=== PATIENT | female | born 2000 | race African-American/Black ===

== ENCOUNTER 2022-09-27 00:55 | Emergency (ER) | payer OTHER, MEDICAID ==
[~2022-09-27] VITALS: Ht 170.2 cm; Wt 81.6 kg
[2022-09-27 01:10] VITALS: BP 117/87
--- NOTE | 2022-09-27 01:13 | NUR ---
TO LOBBY A/W BED AMBULATORY
[2022-09-27 02:02] LABS: EOSINOPHILS # (AUTO) 0.3 K/uL (0-0.4); EOSINOPHILS % (AUTO) 2.9 % (0.0-4.0); HEMATOCRIT 37.7 % (36-48); HEMOGLOBIN 12.5 g/dL (12.0-16.0); LYMPHOCYTES # (AUTO) 3.4 K/uL (2.5-16.5); LYMPHOCYTES % (AUTO) 38.6 % (20.5-51.1); MEAN CORPUSCULAR HEMOGLOBIN 30 pg (27-31); MEAN CORPUSCULAR HGB CONC 33 g/dL (33-37); MEAN CORPUSCULAR VOLUME 90.3 fL (80-94); MONOCYTES # (AUTO) 2.8 K/uL (0.8-1.0); MONOCYTES % (AUTO) 31.4 % (1.7-9.3); NEUTROPHILS # (AUTO) 2.4 K/uL (1.8-7.7); NEUTROPHILS % (AUTO) 27.1 % (42.2-75.2); PLATELET COUNT (AUTO) 363 K/uL (140-450); RED BLOOD CELL COUNT(AUTO) 4.17 MIL/uL (4.20-5.40); RED CELL DISTRIBUTION WIDTH 12.7 % (11.6-13.7); WHITE BLOOD COUNT (AUTO) 8.8 K/uL (4.5-11.0)
[2022-09-27 02:20] LABS: PROTHROMBIN TIME 10.1 secs (10.8-13.4)
[2022-09-27] MEDS ORDERED: MEDR10TA PO (02:52)
[2022-09-27 03:15] VITALS: BP 134/68
--- NOTE | 2022-09-27 03:26 | NUR ---
Patient discharged with v/s stable. Written and verbal after care instructions given and explained BY DR GARCIA. Patient verbalized understanding. Ambulatory with steady gait. All questions addressed prior to discharge. Advised to follow up with PMD.
== END 2022-09-27 03:26 | disposition home or self-care (01) ==
LOC: MED 00:55
DX: N93.8 Other specified abnormal uterine and vaginal bleeding (principal)
CPT/HCPCS: 36415; 81002; 81025; 85025; 85610; 85730; 99283

== ENCOUNTER 2022-11-04 00:02 | Emergency (ER) | payer OTHER, MEDICAID ==
[~2022-11-04] VITALS: Ht 170.2 cm; Wt 85.7 kg
[~2022-11-04 00:02] MED LIST: MEDR10TA PO
[2022-11-04 00:06] VITALS: BP 133/81
--- NOTE | 2022-11-04 00:16 | NUR ---
TO BED 9 FOLLOWING TRIAGE
--- NOTE | 2022-11-04 00:45 | NUR ---
FIRST CONTACT WITH PT. SEE INITIAL ASSESSMENT.
--- NOTE | 2022-11-04 01:00 | NUR ---
DR. GOVEA AT BEDSIDE.
[2022-11-04 01:30] LABS: ALBUMIN 3.6 g/dL (3.4-5.0); ANION GAP 9.7 (8-16); ASPARTATE AMINOTRANSFERASE 10 U/L (15-37); CHLORIDE 104 mmol/L (98-107); GFR ARICAN-AMERICAN 92 mL/min (>90); GLUCOSE 107 mg/dL (74-106); POTASSIUM 3.7 mmol/L (3.5-5.1); SODIUM SERUM 139 mmol/L (136-145); TOTAL BILIRUBIN 0.2 mg/dL (0.0-1.0); UREA NITROGEN, BLOOD 11 mg/dL (7-18)
[2022-11-04 02:00] LABS: BASOPHILS # (AUTO) 0.1 K/uL (0.00-0.22); BASOPHILS % (AUTO) 0.7 % (0.0-2.0); EOSINOPHILS # (AUTO) 0.4 K/uL (0-0.4); EOSINOPHILS % (AUTO) 4.5 % (0.0-4.0); HEMATOCRIT 36.7 % (36-48); HEMOGLOBIN 12.1 g/dL (12.0-16.0); LYMPHOCYTES # (AUTO) 2.9 K/uL (2.5-16.5); LYMPHOCYTES % (AUTO) 36.3 % (20.5-51.1); MEAN CORPUSCULAR HEMOGLOBIN 29 pg (27-31); MEAN CORPUSCULAR HGB CONC 33 g/dL (33-37); MEAN CORPUSCULAR VOLUME 87.7 fL (80-94); MONOCYTES # (AUTO) 0.6 K/uL (0.8-1.0); MONOCYTES % (AUTO) 7.3 % (1.7-9.3); NEUTROPHILS # (AUTO) 4.1 K/uL (1.8-7.7); NEUTROPHILS % (AUTO) 51.2 % (42.2-75.2); PLATELET COUNT (AUTO) 435 K/uL (140-450); RED BLOOD CELL COUNT(AUTO) 4.18 MIL/uL (4.20-5.40); RED CELL DISTRIBUTION WIDTH 12.7 % (11.6-13.7)
[2022-11-04] MEDS ORDERED: CHLO5CAP29 PO (02:38)
[2022-11-04 03:02] VITALS: BP 133/81
--- NOTE | 2022-11-04 03:02 | NUR ---
Patient discharged with v/s stable. Written and verbal after care instructions given and explained. Patient alert, oriented and verbalized understanding of instructions. Ambulatory with steady gait. All questions addressed prior to discharge. ID band removed. Patient advised to follow up with PMD. Rx of LIBRIUM given. Patient educated on indication of medication including possible reaction and side effects. Opportunity to ask questions provided and answered.
== END 2022-11-04 03:02 | disposition home or self-care (01) ==
LOC: MED 00:02
DX: R07.89 Other chest pain (principal); Z20.822 Contact with and (suspected) exposure to COVID-19; F10.129 Alcohol abuse with intoxication, unspecified; Y90.9 Presence of alcohol in blood, level not specified
CPT/HCPCS: 36415; 71045; 80053; 84484; 85025; 87426; 99285; G0482